=== PATIENT | male | born 1990 | race Caucasian/White ===

== ENCOUNTER 2019-07-31 16:25 | Emergency (ER) | payer SELFPAY ==
[2019-07-31 17:06] LABS: Bilirubin Negative (Negative); Blood, Urine Negative (Negative); Glucose, Urine (Dipstick) Negative (Negative); Leukocyte Negative (Negative); Nitrite Negative (Negative); Protein, Urine (Dipstick) Negative (Neg-Trace)
[2019-07-31 17:08] LABS: Clarity Clear (Clear)
[2019-07-31 17:19] LABS: Cocaine Metabolite Screen Not Detected (NotDetected); Medtox Reader # READER 4; Methamphetamine Detected (NotDetected); Phencyclidine (PCP) Not Detected (NotDetected); THC/Cannabinoid Screen Detected (NotDetected)
[2019-07-31 17:20] LABS: Amphetamine Detected (NotDetected); Barbiturates Screen Not Detected (NotDetected); Benzodiazepine Screen Not Detected (NotDetected); Medtox Control Line Valid? VALID (VALID); Methadone Not Detected (NotDetected); Opiate Screen Not Detected (NotDetected); Oxycodone Screen Not Detected (NotDetected); Tricyclic Screen Not Detected (NotDetected)
[2019-07-31 17:37] LABS: #Basophils 0.1 thou/uL (0.0-0.2); #Eosinphils 0.3 thou/uL (0.0-0.7); #Lymphocytes 1.9 thou/uL (1.20-3.40); #Monocytes 0.5 thou/uL (0.11-0.59); #Neutrophils 3.5 thou/uL (1.40-6.50); %Basophils 1.2 % (0.0-1.0); %Eosinophils 4.2 % (0.0-10.0); %Lymphocytes 30.3 % (21.0-51.0); %Monocytes 8.4 % (0.0-10.0); %Neutrophils 55.8 % (42.0-75.0); Hemoglobin 16.1 g/dL (14.0-18.0); Mean Corpuscular HGB CONC 33.3 g/dL (32.0-36.0); Mean Corpuscular Hemoglobin 30.7 pg (27.0-31.0); Mean Corpuscular Volume 92.3 fL (78.0-98.0); Mean Platelet Volume 6.8 fL (7.4-10.4); Platelet Count 253 thou/uL (130-400); RBC Distribution Width 12.4 % (11.5-14.5); Red Blood Cell (RBC) Count 5.25 mill/uL (4.70-6.10); White Blood Cell (WBC) Count 6.3 thou/uL (4.8-10.8)
[2019-07-31 17:57] LABS: Acetaminophen Less than 6.0 mcg/mL (10.0-30.0); Alcohol Less than 10 mg/dL (Less than 10); Salicylate Less than 8.0 mg/dL (15.0-30.0)
[2019-07-31 17:58] LABS: ALT (SGPT) 13 U/L (8-55); AST (SGOT) 17 U/L (5-34); Albumin 3.9 g/dL (3.5-5.0); Alkaline Phosphatase 81 U/L (40-110); Anion Gap 10 mmol/L (10-20); BUN (Urea Nitrogen) 11 mg/dL (8.9-20.6); Bilirubin, Total 0.6 mg/dL (0.2-1.2); CK (CPK) 84 U/L (30-200); Calc. Creatinine Clearance 0 mL/min (70-130); Calcium 9.1 mg/dL (7.8-10.44); Carbon Dioxide 31 mmol/L (22-29); Chloride 104 mmol/L (98-107); Estimated GFR-MDRD Greater than 90; Globulin 3.2 g/dL (2.4-3.5); Glucose 85 mg/dL (70-105); Potassium 4.3 mmol/L (3.5-5.1); Protein, Total 7.1 g/dL (6.0-8.3); Sodium 141 mmol/L (136-145)
[2019-07-31] MEDS ORDERED: Nicotine 21 MG PATCH TOP SCH (18:45)
== END 2019-08-01 09:41 ==
LOC: ERS 16:25
DX: R45.851 Suicidal ideations (principal); F41.9 Anxiety disorder, unspecified; F32.9 Major depressive disorder, single episode, unspecified; F20.9 Schizophrenia, unspecified; F17.210 Nicotine dependence, cigarettes, uncomplicated
CPT/HCPCS: 36415; 80053; 80306; 80307; 81003; 82550; 84443; 85025; 99285

== ENCOUNTER 2020-07-26 17:29 | Inpatient (IN) | payer OTHER, SELFPAY ==
[2020-07-26] MEDS ORDERED: Boostrix 0.5 ML VIAL ONE (17:45)
[2020-07-26 19:14] LABS: #Eosinphils 0.2 thou/uL (0.0-0.7); #Lymphocytes 1.5 thou/uL (1.20-3.40); #Monocytes 0.7 thou/uL (0.11-0.59); %Basophils 0.5 % (0.0-1.0); %Eosinophils 1.9 % (0.0-10.0); %Lymphocytes 16.1 % (21.0-51.0); %Monocytes 7.1 % (0.0-10.0); %Neutrophils 74.5 % (42.0-75.0); Hemoglobin 15.3 g/dL (14.0-18.0); Mean Corpuscular HGB CONC 32.9 g/dL (32.0-36.0); Mean Corpuscular Hemoglobin 30.8 pg (27.0-31.0); Mean Corpuscular Volume 93.8 fL (78.0-98.0); Mean Platelet Volume 7.2 fL (7.4-10.4); Platelet Count 234 thou/uL (130-400); Red Blood Cell (RBC) Count 4.94 mill/uL (4.70-6.10); White Blood Cell (WBC) Count 9.4 thou/uL (4.8-10.8)
[2020-07-26 19:35] LABS: ALT (SGPT) 20 U/L (8-55); AST (SGOT) 23 U/L (5-34); Albumin 4.1 g/dL (3.5-5.0); Alkaline Phosphatase 77 U/L (40-110); Anion Gap 12 mmol/L (10-20); BUN (Urea Nitrogen) 18 mg/dL (8.9-20.6); Bilirubin, Total 0.8 mg/dL (0.2-1.2); Calc. Creatinine Clearance 0 mL/min (70-130); Carbon Dioxide 27 mmol/L (22-29); Chloride 104 mmol/L (98-107); Estimated GFR-MDRD 88; Globulin 3.5 g/dL (2.4-3.5); Glucose 119 mg/dL (70-105); Potassium 4.2 mmol/L (3.5-5.1); Protein, Total 7.6 g/dL (6.0-8.3); Sodium 139 mmol/L (136-145)
[2020-07-26] MEDS ORDERED: Morphine 2 MG/ML VIAL SLOW IVP PRN (21:09)
[2020-07-26 21:19] VITALS: BMI 36.6
[2020-07-26] MEDS ORDERED: risperiDONE 1 MG TAB PO SCH (22:00)
[2020-07-26] MEDS: Lactated Ringer's 1,000 ML IV SCH (23:22)
[2020-07-26] MEDS: CEFAZOLIN 1 GM in Sodium Chloride 0.9% 100 ML IVPB SCH ×2 (23:22→23:24)
[2020-07-26] MEDS: Nicotine 7 MG PATCH TOP SCH (23:29)
[2020-07-27] MEDS: CEFAZOLIN 1 GM in Sodium Chloride 0.9% 100 ML IVPB SCH ×2 (07:30→08:00)
[2020-07-27] MEDS: Lactated Ringer's 1,000 ML IV SCH ×2 (07:30→08:05)
[2020-07-27] MEDS ORDERED: FLU VACC QS2020-21(6MOS UP)/PF 60 MCG/0.5 ML SYRINGE IM ONE (09:00)
[2020-07-27] MEDS ORDERED: risperiDONE 1 MG TAB PO SCH (09:00)
[2020-07-27] MEDS ORDERED: Ketorolac Tromethamine 30 MG/ML VIAL ONE ×2 (09:05→17:26)
[2020-07-27] MEDS ORDERED: Lidocaine 1% PF 5 ML VIAL ONE (09:05)
[2020-07-27] MEDS ORDERED: Dexamethasone 20 MG/5 ML VIAL ONE (09:05)
[2020-07-27] MEDS ORDERED: PROPOFOL 200 MG/20 ML VIAL ONE (09:05)
[2020-07-27] MEDS ORDERED: Ondansetron PF 4 MG/2 ML Vial ONE (09:05)
[2020-07-27 11:42] LABS: SARS-CoV-2 MS2 Positive; SARS-CoV-2 N Gene Negative; SARS-CoV-2 S Gene Negative; SARS-CoV-2 by NAA Not Detected (NotDetected); SARS-CoV-2 orf1ab Negative
[2020-07-27] MEDS ORDERED: Bupivacaine PF 0.5% 30 ML VIAL ONE (12:15)
[2020-07-27] MEDS ORDERED: Bacitracin Zinc Ointment 30 gm TUBE ONE (12:15)
[2020-07-27] MEDS ORDERED: Betamet Acet/Betamet Na Ph 30 MG/5 ML VIAL ONE (12:15)
[2020-07-27] MEDS ORDERED: Neomycin-Polymyxin 1 ML AMP ONE (12:17)
[2020-07-27] MEDS ORDERED: Fentanyl 100 MCG/2 ML VIAL ONE ×2 (12:22→14:58)
[2020-07-27] MEDS ORDERED: Midazolam HCl 2 mg/2 ml Vial ONE (12:25)
[2020-07-27] MEDS ORDERED: Gentamicin 80 MG/2 ML VIAL ONE (13:22)
[2020-07-27] MEDS ORDERED: Sodium Chloride 0.9% 10 ML ONE (13:23)
[2020-07-27] MEDS ORDERED: Promethazine HCl 25 MG/ML VIAL IM PRN ×3 (17:24→17:40)
[2020-07-27] MEDS ORDERED: Promethazine HCl 25 MG/ML VIAL SLOW IVP PRN ×2 (17:24→17:25)
[2020-07-27] MEDS ORDERED: Ondansetron HCl/PF 4 MG/2 ML Vial IVP PRN ×2 (17:24→17:25)
[2020-07-27] MEDS ORDERED: HYDROmorphone 2 MG/ML VIAL SLOW IVP PRN (17:24)
[2020-07-27] MEDS ORDERED: Ketorolac Tromethamine 30 MG/ML VIAL IVP PRN ×2 (17:25→17:46)
[2020-07-27] MEDS ORDERED: Ondansetron PF 4 MG/2 ML Vial SLOW IVP PRN (17:40)
[2020-07-27] MEDS ORDERED: Acetaminophen/Codeine 30-300mg Tablet PO PRN (17:40)
[2020-07-27] MEDS ORDERED: HYDROcodone/Acetaminophen 5/325 mg Tablet PO PRN (17:40)
[2020-07-27] MEDS ORDERED: Acetaminophen 325 MG TAB PO PRN (17:40)
[2020-07-27] MEDS ORDERED: traMADol HCl 50 MG TAB PO PRN (17:40)
[2020-07-27] MEDS ORDERED: Fentanyl 100 MCG/2 ML VIAL SLOW IVP PRN (17:40)
[2020-07-27] MEDS ORDERED: Morphine 4 MG/ML VIAL SLOW IVP PRN (17:40)
[2020-07-27] MEDS ORDERED: Communication Order-Pharmacy FS SCH (17:45)
[2020-07-27] MEDS ORDERED: Meperidine HCl/PF 25 MG/ML VIAL IM PRN (17:46)
[2020-07-27] MEDS ORDERED: TETANUS AND DIPHTHERIA TOX/PF 0.5 ML DISP.SYRIN IM SCH (18:00)
--- NOTE | 2020-07-27 20:19 | OP ---
DATE OF PROCEDURE: 07/27/2020 ANESTHESIA: General LMA technique augmented by 20 mL of 0.5% Marcaine given prior to surgery. PREOPERATIVE DIAGNOSES: 1. Radial digital nerve laceration, index finger. 2. Flexor digitorum profundus and flexor superficialis laceration, at the level of the A4 jacquelyn, making a zone two injury. 3. Palmar interossei laceration, index finger. 4. 2 cm wound, index finger. 5. At the thumb, one left thumb cutaneous nerve laceration central and radial to complete extensor pollicis longus laceration. 6. 1 cm laceration of skin. POSTOPERATIVE DIAGNOSES: 1. Radial digital nerve laceration, index finger. 2. Flexor digitorum profundus and flexor superficialis laceration, at the level of the A4 jacquelyn, making a zone two injury. 3. Palmar interossei laceration, index finger. 4. 2 cm wound, index finger. 5. At the thumb, one left thumb cutaneous nerve laceration central and radial to complete extensor pollicis longus laceration. 6. 1 cm laceration of skin. PROCEDURES PERFORMED: 1. At the left thumb. a. Debridement of wound. b. Closure of wound. c. Microscopic thumb radial sensory nerve branch repair. d. Extensor pollicis longus laceration repair. e. Microscopic digital nerve neuroplasty. 2. At the index finger. a. Debridement of wound. b. Closure of wound, 2 cm. c. Microscopic digital nerve neuroplasty. d. Digital nerve neuroplasty x2 microscopic. e. Radial digital nerve laceration repair, microscopic. 3. Flexor digitorum profundus repair in the zone two. 4. Flexor digitorum superficialis repair, zone two. 5. A1 jacquelyn release. DESCRIPTION OF PROCEDURE: After successful general LMA technique, the limb was prepped and draped. The patient then had a time-out accomplished and we identified the left thumb and index finger laceration. Left thumb laceration was dorsal radial and the index finger laceration was palmar radial. We exsanguinated the limb, inflated tourniquet to 250 mmHg pressure and extended each wound 3 cm distal and 2 cm proximal. There was a hematoma inside both the thumb and the index finger wound. Performed debridement 1st using tenotomy scissors, Yoakum blade, irrigation with 2 L of normal saline under bulb syringe pressure to evacuate all hematoma identified the damaged part. Under loupe magnification, we resected the skin edges. We using the same excisional technique down to and including the bone and found that the laceration of the index finger flexor toe profundus superficialis tendons were complete as was the thumb extensor pollicis longus and at the index finger laceration was through the proximal one third of the index finger A1 jacquelyn, making it a zone two injury in the level of the interosseous pulleys. We then received excellent hemostasis and began repair. We repaired the flexor digitorum profundus first with the finger flexed using a Surya needle to visualize 15 mm of tendon distal and at 2 cm proximal. We then used a classic a Bell-Mikaela technique with a 3-0 loop suture. Using two looped sutures for each of the two tendons, back wall repair first with a running 6-0 Prolene and then tied the knot for the limb size suture within the tendon structure and then over sewed with a running 6-0. We then released the A1 jacquelyn and this allowed excellent extension to 0 degrees at the PIP without any triggering or interruption of smooth excursion. We also repaired the 2nd palmar interossei using a #2 Ethibond one OS-4 needle. Multiple sutures gave a smooth surface and then palmar to this, we were able to identify the radial digital nerve complete lacerated. We did a microscopic digital neuroplasty of digital nerve and artery on the ulna side were intact. Likewise, the thumb, under microscope, we did a digital neuroplasty and saw that the digital nerve on the radial side of this lesion was intact and the neurovascular bundle was not even disturbed. I did lacerate two cutaneous superficial radial nerve terminal branches and we identified these for later closure. We now turned our attention to the thumb. We used a 4-0 Prolene [id number] suture x5 sutures to repair complete extensor pollicis longus and had excellent tension, and with 20 degrees of extension, there was no gap for flexion. There was no gap formation at the repair. Microscope was brought onto the field now, and we repaired the cutaneous digital nerve with 9-0 Nurolon x3 different cutaneous nerve branches. There was no gap formation here as well with 20 degrees of flexion of the IP joint. We turned our attention back to the large digital nerve branch, which was lacerated just prior to the sensory dorsal and palmar bifurcation. We resected, and used an epineural repair technique using a combination of 8-0 sutures on each end x1 and then 9-0 sutures in the middle x3, two palmar and one back wall. Then, we had released the tourniquet at 120 minutes and obtained hemostasis. We now obtained hemostasis in all the wounds, irrigated again with another 500 mL of normal saline and there was no excess bleeding. We obtained excellent hemostasis. Both incisions were closed with interrupted 4-0 nylon in a simple pattern, bulky dressing applied, bacitracin, Adaptic, 4x4, multiple 4x4's opened in the web spaces. Kerlix was applied and then the thumb was in abduction and 20 degrees of IP joint hyperextension and a 3-0 circumferential splint, well-padded Webril and a dorsal block splint was placed with the PIP at -20 degrees extension, with the index finger DIP pull forward approximately 6 to 7 mm compared to other digits based on the tension on the repair. All digits were pink with 1 second refill. The patient left the operating room without evidence of anesthetic or operative complication. Job ID: [id number]
[2020-07-27] MEDS ORDERED: risperiDONE 3 MG TAB PO SCH (21:00)
[2020-07-27] MEDS: Aspirin 81 mg Enteric Coated Tablet PO SCH (21:30)
[2020-07-27] MEDS: Nicotine 7 MG PATCH TOP SCH (21:33)
[2020-07-28 05:11] LABS: #Lymphocytes 0.8 thou/uL (1.20-3.40); #Monocytes 0.4 thou/uL (0.11-0.59); #Neutrophils 6.4 thou/uL (1.40-6.50); %Basophils 0.1 % (0.0-1.0); %Eosinophils 0.2 % (0.0-10.0); %Lymphocytes 9.9 % (21.0-51.0); %Monocytes 5.5 % (0.0-10.0); %Neutrophils 84.4 % (42.0-75.0); Mean Corpuscular Hemoglobin 31.5 pg (27.0-31.0); Mean Corpuscular Volume 95.3 fL (78.0-98.0); Platelet Count 220 thou/uL (130-400); RBC Distribution Width 12.6 % (11.5-14.5); Red Blood Cell (RBC) Count 4.45 mill/uL (4.70-6.10); White Blood Cell (WBC) Count 7.6 thou/uL (4.8-10.8)
[2020-07-28] MEDS: Aspirin 81 mg Enteric Coated Tablet PO SCH (08:17)
[2020-07-28] MEDS ORDERED: risperiDONE 1 MG TAB PO SCH (12:00)
--- NOTE | 2020-07-28 12:37 | PDOC.HHP ---
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 Patient underwent left hand laceration, nerve, and ligamentous repair by Dr. Ruiz on 07/27/2020. Hospitalist service consulted for medical management. Patient currently resting comfortably in bed. Denies chest pain, shortness of breath, abdominal pain. Patient denies numbness or tingling to extremities. Reports feeling in his left hand. Chart and medications reviewed. Hospitalist ROS - Review of Systems Constitutional: denies: fever, chills, sweats, weakness, malaise, other Eyes: denies: vision change ENT: denies: throat pain Respiratory: denies: cough, shortness of breath Cardiovascular: denies: chest pain, palpitations, orthopnea, light headedness Gastrointestinal: denies: nausea, vomiting, abdominal pain, diarrhea Genitourinary: denies: dysuria Musculoskeletal: reports: hand pain Skin: denies: rash Neurological: denies: weakness, numbness - Medication Medications: Active Medications Generic Name Dose Route Start Last Admin Trade Name Freq PRN Reason Stop Dose Admin Aspirin 81 mg 07/27/20 21:00 07/28/20 08:17 Aspirin 81 Mg Enteric Coated Tablet PO 81 mg BID ANTIONE Administration Nicotine 7 mg 07/26/20 22:00 07/27/20 21:33 Nicotine 7 Mg Patch TOP 7 mg 2200 ANTIONE Administration Quetiapine Fumarate 50 mg 07/27/20 21:00 07/28/20 00:48 Quetiapine Fumarate 25 Mg Tab PO Not Given HS [facility] Risperidone 3 mg 07/27/20 21:00 07/28/20 00:49 Risperidone 3 Mg Tab PO Not Given HS [facility] Hospitalist History - Past Medical History Other Medical History: Past medical history Schizophrenia Bipolar disorder Tobacco use Marijuana use - Past Surgical History Other Surgical History: Past surgical history includes Ankle surgery Left hand laceration, nerve, ligamentous repair - Family History Other Family History: Reports family history of father with heart disease, who is passed a patient unsure how old his father was. - Social History Smoking Status: Current every day smoker Tobacco Type: cigarettes Alcohol: reports: Occassional Drugs: reports: marijuana Living Situation: With Family Activity level: independent ambulation - Exam General Appearance: NAD, awake alert Eye: PERRL, anicteric sclera ENT: normocephalic atraumatic, no oropharyngeal lesions, moist mucosa Neck: supple, symmetric, no JVD, no thyromegaly, no lymphadenopathy, no carotid bruit Heart: RRR, no murmur, no gallops, no rubs, normal peripheral pulses Respiratory: CTAB, no wheezes, no rales, no ronchi, normal chest expansion, no tachypnea, normal percussion Gastrointestinal: soft, non-tender, non-distended, normal bowel sounds, no palpable masses, no hepatomegaly, no splenomegaly, no bruit Extremities: no cyanosis, no clubbing, no edema Extremities - other findings: Good capillary refill to left hand, dressing in place. Skin: normal turgor, no lesions, no rashes Neurological: cranial nerve grossly intact, normal sensation to touch, no weakness, no focal deficits, no new deficit Musculoskeletal: normal tone, normal strength, no muscle wasting Psychiatric: normal affect, normal behavior, A&O x 3 Hospitalist Results - Labs Result Diagrams: 07/28/20 04:48 07/26/20 19:07 Lab results: WBC 7.6 thou/uL (4.8-10.8) 07/28/20 04:48 Hgb 14.0 g/dL (14.0-18.0) 07/28/20 04:48 Hct 42.4 % (42.0-52.0) 07/28/20 04:48 MCV 95.3 fL (78.0-98.0) 07/28/20 04:48 Plt Count 220 thou/uL (130-400) 07/28/20 04:48 Neutrophils % 84.4 % (42.0-75.0) H 07/28/20 04:48 Sodium 139 mmol/L (136-145) 07/26/20 19:07 Potassium 4.2 mmol/L (3.5-5.1) 07/26/20 19:07 Chloride 104 mmol/L (98-107) 07/26/20 19:07 Carbon Dioxide 27 mmol/L (22-29) 07/26/20 19:07 BUN 18 mg/dL (8.9-20.6) 07/26/20 19:07 Creatinine 1.01 mg/dL (0.7-1.3) 07/26/20 19:07 Glucose 119 mg/dL (70-105) H 07/26/20 19:07 Calcium 9.0 mg/dL (7.8-10.44) 07/26/20 19:07 Total Bilirubin 0.8 mg/dL (0.2-1.2) 07/26/20 19:07 AST 23 U/L (5-34) 07/26/20 19:07 ALT 20 U/L (8-55) 07/26/20 19:07 Alkaline Phosphatase 77 U/L (40-110) 07/26/20 19:07 Serum Total Protein 7.6 g/dL (6.0-8.3) 07/26/20 19:07 Albumin 4.1 g/dL (3.5-5.0) 07/26/20 19:07 Hospitalist H&P A/P - Plan Plan: Status post left hand laceration, nerve, tendon repair Patient is postop day 1 after surgical repair from a jukebox checker injury at work that was done by Dr. Ruiz on 07/27/2020. Patient currently denies any chest pain, shortness of breath, abdominal pain. No BM yet, but passing flatus. Reports intact sensation to left upper extremity. ENcouraged use of IS. Plan -Surgical team primary -Encourage IS -Bowel regimen -Neurovascular checks q4 Bipolar Disorder/Schizophrenia Pt with hx of bipolar disorder and schizophrenia. On home seroquel 25 mg nightly and risperdal 4 mg BID. Patient currently reports that his mood is stable. Denies SI/HI. Plan -Continue seroquel 25 mg nightly -Continue risperdal 4 mg BID DVT prophylaxis: per surgical team FULL CODE Case discussed with attending physician, Dr. Claros.
[2020-07-28 15:48] VITALS: BP 133/83; TEMP 98.2
--- NOTE | 2020-07-29 15:01 | DIS ---
DATE OF ADMISSION: 07/27/2020 DATE OF DISCHARGE: 07/28/2020 ADMISSION DIAGNOSES: 1. Schizophrenia, chronic, relapsing, presently untreated. 2. Zone 2, proximal aspect of zone 2 flexor digitorum profundus and superficialis laceration, index finger, left. 3. Digital nerve laceration, radial digital nerve index finger, left. 4. Cutaneous nerve laceration, dorsal aspect of the thumb, zone 2, left. 5. Left thumb extensor pollicis longus laceration complete zone 1 to 2 as well, also of the left thumb. HOSPITAL COURSE: The patient was admitted to the hospital after having admitted that although he is holding a job, he has had schizophrenia for most of his life. He reports beginning to hear voices and have thoughts that he could not control, began at age 11, but he felt that this might be his "normal state." Between age 14 and 15, he reports began to try to control these voices and deal with them using marijuana abuse. It was not until he was almost 21 years old that he began having treatment appropriately. He reports that he is under the treatment of the local [facility] but has not had an appointment for approximately six months or since the [place] uncontrolled COVID-19 outbreak and the Tuesday, the 13 of December emergency declaration. He has been thus without his previous medicine which he said was risperidone. 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 This left him with the laceration as described as the admit and discharge diagnosis. Because of this, he was admitted, underwent what we were told would be a rapid COVID test, but because of the emergency declarations the rapid test at this facility really mean 24 hours, we had to wait almost the whole day until the test was confirmed and he was COVID negative, so we proceeded with the surgery. Thus, the day after admission, went to the operating room, underwent repair microscopically of the radial digital nerve, debridement of wound of the index finger, and repair of the flexor digitorum profundus and flexor digitorum superficialis through the A4 jacquelyn and then he underwent open release of the jacquelyn, repair the wound, repair of the first palmar interossei, and microscopic digital nerve repair. At the thumb, he underwent debridement of wound, repair of extensor pollicis longus tendon, and the repair of the digital nerve, repair of the dorsal cutaneous superficial radial nerve terminal branches. Digital nerve neuroplasty of the index finger under microscope ulnar digital nerve and of the radial digital nerve to the thumb revealed no digital nerve laceration through these regions. He tolerated the procedure well. He had stable neurologic exam and could flex. He has already flexed distal phalangeal and index finger in the dorsal block splint without problems and could extend the PIP to -20. This is on the day of discharge. He underwent treatment beginning with risperidone 3 mg the night before surgery, 2 mg on the day of surgery and then was treated risperidone the day after surgery until we were able to have him evaluated by [facility] approximately 1600 on the day of discharge. They arranged for him to have a zoom meeting in one week as an appointment for followup and then instructed me to place him on Zyprexa, 5 mg tablets, two tablets in the morning and one tablet at night. He will be given 90. His other discharge medications will be clindamycin 300 mg one p.o. q.8 hours for a total of 15 days as prophylactic antibiotic and tramadol 50 mg one q.8 hours p.r.n., total of 21 for pain as needed. He was very comfortable at the time of discharge. PAST MEDICAL HISTORY: Tobacco abuse. PAST SURGICAL HISTORY: Not applicable. REVIEW OF SYSTEMS: Please see detailed psychiatric history listed in history of present illness above. PLAN: Follow up with MR in seven days, follow up in our office in approximately 10 days, and continue to keep his splint clean and dry. I have touched base at the time of discharge with his grandmother, Ms. Kirkland, whom he lives with, has explicit instructions for both the MR followup and for how to keep the dressing clean and dry. We wished this gentleman luck in his fight to seek a cure under such trying health times such as post-COVID and scarcity of mental health availability. Job ID: [id number]
== END 2020-07-28 18:10 | disposition home or self-care (01) | DRG 42 ==
LOC: ERS 17:29 → SJJU 19:22 → OBSVTOIN 07-27 17:40
PROVIDERS: ADMIT Orthopaedic Surgery Hand Surgery; ATTEND Orthopaedic Surgery Hand Surgery
PROC: 01Q60ZZ Repair Radial Nerve, Open Approach (ICD-10-PCS; principal; 2020-07-27)
PROC: 0PBV0ZZ Excision of Left Finger Phalanx, Open Approach (ICD-10-PCS; 2020-07-27)
PROC: 0PBS0ZZ Excision of Left Thumb Phalanx, Open Approach (ICD-10-PCS; 2020-07-27)
PROC: 3E0234Z Introduction of Serum, Toxoid and Vaccine into Muscle, Percutaneous Approach (ICD-10-PCS; 2020-07-27)
DX: S64.491A Injury of digital nerve of left index finger, initial encounter (principal); S64.32XA Injury of digital nerve of left thumb, initial encounter; Z20.828 Contact with and (suspected) exposure to other viral communicable diseases; F20.9 Schizophrenia, unspecified; F31.9 Bipolar disorder, unspecified; F17.210 Nicotine dependence, cigarettes, uncomplicated; F12.10 Cannabis abuse, uncomplicated; Z23 Encounter for immunization; W26.8XXA Contact with other sharp object(s), not elsewhere classified, initial encounter; Y92.69 Other specified industrial and construction area as the place of occurrence of the external cause; Z79.899 Other long term (current) drug therapy
CPT/HCPCS: 12002; 36415; 80053; 85025; 87635; 90471; 90715; 93005; 96365; 96375; G0378; J0690; J0702; J1100; J1580; J1885; J2250; J2270; J2405; J2704; J3010; J3370; J3490; J7030; S0020; U0003

== ENCOUNTER 2021-03-08 17:46 | Emergency (ER) | payer SELFPAY ==
[2021-03-08 20:51] LABS: #Eosinphils 0.2 thou/uL (0.0-0.7); #Lymphocytes 1.7 thou/uL (1.20-3.40); #Monocytes 0.7 thou/uL (0.11-0.59); #Neutrophils 6.1 thou/uL (1.40-6.50); %Basophils 0.2 % (0.0-1.0); %Eosinophils 2.8 % (0.0-10.0); %Lymphocytes 19.1 % (21.0-51.0); %Monocytes 7.8 % (0.0-10.0); %Neutrophils 70.2 % (42.0-75.0); Hemoglobin 13.6 g/dL (14.0-18.0); Mean Corpuscular HGB CONC 33.5 g/dL (32.0-36.0); Mean Corpuscular Hemoglobin 30.8 pg (27.0-31.0); Mean Corpuscular Volume 91.9 fL (78.0-98.0); Mean Platelet Volume 7.1 fL (7.4-10.4); Platelet Count 239 thou/uL (130-400); Red Blood Cell (RBC) Count 4.42 mill/uL (4.70-6.10); White Blood Cell (WBC) Count 8.7 thou/uL (4.8-10.8)
[2021-03-08 21:04] LABS: ALT (SGPT) 21 U/L (8-55); AST (SGOT) 18 U/L (5-34); Albumin 3.7 g/dL (3.5-5.0); Alkaline Phosphatase 74 U/L (40-110); Anion Gap 14 mmol/L (10-20); BUN (Urea Nitrogen) 12 mg/dL (8.9-20.6); Bilirubin, Total 0.7 mg/dL (0.2-1.2); Calc. Creatinine Clearance 0 mL/min (70-130); Calcium 8.7 mg/dL (7.8-10.44); Carbon Dioxide 25 mmol/L (22-29); Chloride 106 mmol/L (98-107); Glucose 98 mg/dL (70-105); Potassium 3.8 mmol/L (3.5-5.1); Protein, Total 6.7 g/dL (6.0-8.3); Sodium 141 mmol/L (136-145)
[2021-03-08 22:01] LABS: Bilirubin Negative (Negative); Blood, Urine Negative (Negative); Glucose, Urine (Dipstick) Negative (Negative); Ketone, Urine Negative (Negative); Leukocyte Negative (Negative); Nitrite Negative (Negative); Protein, Urine (Dipstick) Negative (Neg-Trace)
[2021-03-08 22:02] LABS: Clarity Clear (Clear); Specific Gravity, Urine 1.029 (1.002-1.036)
== END 2021-03-08 23:05 | disposition home or self-care (01) ==
LOC: ERS 17:46
DX: M79.89 Other specified soft tissue disorders (principal); F17.210 Nicotine dependence, cigarettes, uncomplicated
CPT/HCPCS: 36415; 71045; 80053; 81003; 83880; 85025; 93005

== ENCOUNTER 2022-07-18 16:02 | Emergency (ER) | payer SELFPAY ==
[2022-07-18] MEDS ORDERED: Lidocaine 1% PF 5 ML VIAL ONE (16:22)
[2022-07-18] MEDS ORDERED: Bacitracin 1 PK ONE (17:21)
== END 2022-07-18 17:38 | disposition home or self-care (01) ==
LOC: ERS 16:02
DX: S51.812A Laceration without foreign body of left forearm, initial encounter (principal); F17.210 Nicotine dependence, cigarettes, uncomplicated; W25.XXXA Contact with sharp glass, initial encounter
CPT/HCPCS: 12032

== ENCOUNTER 2024-06-26 09:53 | Inpatient (IN) | payer OTHER ==
[2024-06-26 10:36] LABS: #Basophils 0.06 10x3/uL (0.0-0.2); %Basophils 0.5 % (0.0-1.0); %Eosinophils 2.8 % (0.0-10.0); %Lymphocytes 17.5 % (21.0-51.0); %Monocytes 6.3 % (0.0-10.0); %Neutrophils 72.5 % (42.0-75.0); Hematocrit 49.8 % (42.0-52.0); Hemoglobin 15.4 g/dL (14.0-18.0); Mean Corpuscular HGB CONC 30.9 g/dL (32.0-36.0); Mean Corpuscular Hemoglobin 28.3 pg (27.0-31.0); Mean Corpuscular Volume 91.5 fL (78.0-98.0); Mean Platelet Volume 10.1 fL (7.4-10.4); Platelet Count 234 10x3/uL (130-400); RBC Distribution Width 14.6 % (11.5-14.5); Red Blood Cell (RBC) Count 5.44 mill/uL (4.70-6.10)
[2024-06-26] MEDS ORDERED: Iopamidol-370 76% 500 ML MDV (1 ML CHARGE) ONE (10:43)
[2024-06-26 10:52] LABS: ALT (SGPT) 51 U/L (8-55); AST (SGOT) 28 U/L (5-34); Albumin 3.4 g/dL (3.5-5.0); Alkaline Phosphatase 100 U/L (40-110); Anion Gap 14 mmol/L (10-20); BUN (Urea Nitrogen) 15 mg/dL (8.9-20.6); Bilirubin, Total 1.4 mg/dL (0.2-1.2); Calc. Creatinine Clearance 0 mL/min (70-130); Calcium 9.2 mg/dL (7.8-10.44); Carbon Dioxide 25 mmol/L (22-29); Chloride 103 mmol/L (98-107); Estimated GFR 78; Globulin 4.6 g/dL (2.4-3.5); Glucose 162 mg/dL (70-105); Potassium 3.9 mmol/L (3.5-5.1); Sodium 138 mmol/L (136-145)
[2024-06-26 11:27] LABS: Troponin I 0.519 ng/mL (< 0.028)
[2024-06-26 12:03] LABS: INR-International Normal Ratio 1.1; Lipase 13 U/L (8-78); Prothrombin Time 14.4 sec (12.0-14.7)
[2024-06-26 12:04] LABS: PTT 32.4 sec (22.9-36.1)
[2024-06-26 12:06] LABS: Acetaminophen Less than 10 mcg/mL (Less than 10); Alcohol Less than 10.0 mg/dL (Less than 10); Salicylate Less than 8.0 mg/dL (Less than 8.0)
[2024-06-26] MEDS ORDERED: Enoxaparin 100 MG (1 mL) SYRINGE ONE (12:36)
[2024-06-26] MEDS ORDERED: Enoxaparin 40 MG (0.4 mL) SYRINGE ONE (12:36)
[2024-06-26] MEDS ORDERED: Enoxaparin 30 MG (0.3 mL) SYRINGE ONE ×2 (12:36→15:46)
[2024-06-26] MEDS ORDERED: Acetaminophen 325 MG TAB PO PRN (14:32)
[2024-06-26] MEDS: Enoxaparin 30 MG (0.3 mL) SYRINGE IVP SCH (15:51)
[2024-06-26 16:13] LABS: Troponin I 0.427 ng/mL (< 0.028)
[2024-06-26 17:01] LABS: Amphetamine Detected (NotDetected); Barbiturates Screen Not Detected (NotDetected); Benzodiazepine Screen Not Detected (NotDetected); Cocaine Metabolite Screen Not Detected (NotDetected); Methadone Not Detected (NotDetected); Methamphetamine Detected (NotDetected); Opiate Screen Not Detected (NotDetected); Oxycodone Screen Not Detected (NotDetected); Phencyclidine (PCP) Not Detected (NotDetected); THC/Cannabinoid Screen Detected (NotDetected); Tricyclic Screen Not Detected (NotDetected)
[2024-06-26 18:53] LABS: Lactic Acid 2.23 mmol/L (0.5-2.2)
[2024-06-26] MEDS: Enoxaparin 60 MG (0.6 mL) SYRINGE SC SCH (22:06)
[2024-06-26] MEDS: Enoxaparin 120 MG/0.8 ML SYRINGE SC SCH (22:06)
[2024-06-27 05:46] LABS: #Basophils 0.07 10x3/uL (0.0-0.2); %Basophils 0.7 % (0.0-1.0); %Lymphocytes 22.1 % (21.0-51.0); %Monocytes 9.2 % (0.0-10.0); %Neutrophils 63.6 % (42.0-75.0); Hematocrit 43.2 % (42.0-52.0); Hemoglobin 13.7 g/dL (14.0-18.0); Mean Corpuscular HGB CONC 31.7 g/dL (32.0-36.0); Mean Corpuscular Hemoglobin 28.7 pg (27.0-31.0); Mean Corpuscular Volume 90.4 fL (78.0-98.0); Mean Platelet Volume 10.3 fL (7.4-10.4); Platelet Count 227 10x3/uL (130-400); RBC Distribution Width 14.6 % (11.5-14.5); Red Blood Cell (RBC) Count 4.78 mill/uL (4.70-6.10)
[2024-06-27 05:59] LABS: INR-International Normal Ratio 1.2; Prothrombin Time 15.1 sec (12.0-14.7)
[2024-06-27 06:00] LABS: PTT 45.8 sec (22.9-36.1)
[2024-06-27 06:09] LABS: D-Dimer Test 9.92 mcg/mL (0.27-0.43)
[2024-06-27 06:35] LABS: ALT (SGPT) 36 U/L (8-55); AST (SGOT) 22 U/L (5-34); Albumin 2.8 g/dL (3.5-5.0); Alkaline Phosphatase 81 U/L (40-110); Anion Gap 12 mmol/L (10-20); BUN (Urea Nitrogen) 13 mg/dL (8.9-20.6); Bilirubin, Total 1.2 mg/dL (0.2-1.2); Calc. Creatinine Clearance 260 mL/min (70-130); Calcium 8.7 mg/dL (7.8-10.44); Carbon Dioxide 24 mmol/L (22-29); Chloride 105 mmol/L (98-107); Estimated GFR 108; Globulin 3.8 g/dL (2.4-3.5); Glucose 113 mg/dL (70-105); Potassium 4.4 mmol/L (3.5-5.1); Protein, Total 6.6 g/dL (6.0-8.3); Sodium 137 mmol/L (136-145)
[2024-06-27] MEDS: Enoxaparin 120 MG/0.8 ML SYRINGE SC SCH (08:43)
[2024-06-27] MEDS: Enoxaparin 60 MG (0.6 mL) SYRINGE SC SCH (08:43)
[2024-06-27] MEDS ORDERED: Bupropion 150 MG SR.TAB PO SCH (09:00)
[2024-06-27 09:31] LABS: Critical Call Chem Troponin I RESULT DECREASING; Troponin I 0.323 ng/mL (< 0.028)
[2024-06-27] MEDS: Lorazepam 0.5 MG TAB PO PRN (12:30)
[2024-06-27] MEDS: Lorazepam 2 MG/ML VIAL SLOW IVP SCH (14:18)
[2024-06-27] MEDS: Nicotine 14 MG PATCH TD SCH (18:36)
[2024-06-28 05:57] LABS: #Basophils 0.07 10x3/uL (0.0-0.2); %Basophils 0.6 % (0.0-1.0); %Eosinophils 3.7 % (0.0-10.0); %Lymphocytes 18.6 % (21.0-51.0); %Monocytes 7.2 % (0.0-10.0); %Neutrophils 69.3 % (42.0-75.0); Hematocrit 44.8 % (42.0-52.0); Hemoglobin 14.3 g/dL (14.0-18.0); Mean Corpuscular HGB CONC 31.9 g/dL (32.0-36.0); Mean Corpuscular Hemoglobin 28.3 pg (27.0-31.0); Mean Corpuscular Volume 88.7 fL (78.0-98.0); Mean Platelet Volume 10.5 fL (7.4-10.4); Platelet Count 277 10x3/uL (130-400); RBC Distribution Width 14.6 % (11.5-14.5); Red Blood Cell (RBC) Count 5.05 mill/uL (4.70-6.10)
[2024-06-28 06:18] LABS: ALT (SGPT) 30 U/L (8-55); AST (SGOT) 17 U/L (5-34); Albumin 2.7 g/dL (3.5-5.0); Alkaline Phosphatase 83 U/L (40-110); Anion Gap 11 mmol/L (10-20); BUN (Urea Nitrogen) 17 mg/dL (8.9-20.6); Bilirubin, Total 0.8 mg/dL (0.2-1.2); Calc. Creatinine Clearance 290 mL/min (70-130); Calcium 8.7 mg/dL (7.8-10.44); Carbon Dioxide 25 mmol/L (22-29); Chloride 105 mmol/L (98-107); Estimated GFR 118; Globulin 3.8 g/dL (2.4-3.5); Glucose 137 mg/dL (70-105); Potassium 3.8 mmol/L (3.5-5.1); Protein, Total 6.5 g/dL (6.0-8.3); Sodium 137 mmol/L (136-145)
[2024-06-28] MEDS: Pantoprazole DR 40 MG TAB PO SCH (08:39)
[2024-06-28] MEDS: Nicotine 14 MG PATCH TD SCH (17:26)
[2024-06-28] MEDS: Apixaban 5 MG TAB PO SCH (21:18)
[2024-06-29 05:02] LABS: #Basophils 0.07 10x3/uL (0.0-0.2); %Basophils 0.6 % (0.0-1.0); %Eosinophils 3.6 % (0.0-10.0); %Lymphocytes 20.9 % (21.0-51.0); %Monocytes 8.4 % (0.0-10.0); %Neutrophils 65.9 % (42.0-75.0); Hematocrit 42.7 % (42.0-52.0); Hemoglobin 13.7 g/dL (14.0-18.0); Mean Corpuscular HGB CONC 32.1 g/dL (32.0-36.0); Mean Corpuscular Hemoglobin 28.4 pg (27.0-31.0); Mean Corpuscular Volume 88.4 fL (78.0-98.0); Mean Platelet Volume 10.3 fL (7.4-10.4); Platelet Count 278 10x3/uL (130-400); RBC Distribution Width 14.6 % (11.5-14.5); Red Blood Cell (RBC) Count 4.83 mill/uL (4.70-6.10)
[2024-06-29 05:23] LABS: ALT (SGPT) 27 U/L (8-55); AST (SGOT) 18 U/L (5-34); Albumin 2.6 g/dL (3.5-5.0); Alkaline Phosphatase 71 U/L (40-110); Anion Gap 13 mmol/L (10-20); BUN (Urea Nitrogen) 14 mg/dL (8.9-20.6); Calc. Creatinine Clearance 262 mL/min (70-130); Calcium 8.5 mg/dL (7.8-10.44); Carbon Dioxide 26 mmol/L (22-29); Chloride 103 mmol/L (98-107); Estimated GFR 109; Globulin 3.6 g/dL (2.4-3.5); Glucose 101 mg/dL (70-105); Potassium 4.5 mmol/L (3.5-5.1); Protein, Total 6.2 g/dL (6.0-8.3); Sodium 137 mmol/L (136-145)
[2024-06-29 12:32] LABS: Cardiolipin IgA Ab 6.8 APL-U/mL (<14 Negative); Cardiolipin IgM Ab 4.3 MPL-U/mL (<10 Negative); EliA APS New Method **** NEW METHOD ****
[2024-06-29] MEDS: Sacubitril 24MG/Valsartan 26 MG TAB PO SCH (20:26)
[2024-06-30 03:54] LABS: #Basophils 0.07 10x3/uL (0.0-0.2); %Basophils 0.6 % (0.0-1.0); %Lymphocytes 18.8 % (21.0-51.0); %Monocytes 6.9 % (0.0-10.0); %Neutrophils 69.2 % (42.0-75.0); Hematocrit 44.4 % (42.0-52.0); Mean Corpuscular HGB CONC 31.5 g/dL (32.0-36.0); Mean Corpuscular Hemoglobin 28.3 pg (27.0-31.0); Mean Corpuscular Volume 89.9 fL (78.0-98.0); Mean Platelet Volume 9.7 fL (7.4-10.4); Platelet Count 312 10x3/uL (130-400); RBC Distribution Width 14.7 % (11.5-14.5); Red Blood Cell (RBC) Count 4.94 mill/uL (4.70-6.10)
[2024-06-30 04:27] LABS: ALT (SGPT) 35 U/L (8-55); AST (SGOT) 32 U/L (5-34); Albumin 2.7 g/dL (3.5-5.0); Alkaline Phosphatase 76 U/L (40-110); Anion Gap 13 mmol/L (10-20); BUN (Urea Nitrogen) 12 mg/dL (8.9-20.6); Bilirubin, Total 0.8 mg/dL (0.2-1.2); Calc. Creatinine Clearance 271 mL/min (70-130); Calcium 8.9 mg/dL (7.8-10.44); Carbon Dioxide 24 mmol/L (22-29); Chloride 106 mmol/L (98-107); Estimated GFR 113; Globulin 3.8 g/dL (2.4-3.5); Glucose 123 mg/dL (70-105); Potassium 4.2 mmol/L (3.5-5.1); Protein, Total 6.5 g/dL (6.0-8.3); Sodium 139 mmol/L (136-145)
[2024-06-30 05:30] VITALS: BMI 39.2
[2024-06-30] MEDS: Dapagliflozin Propanediol 10 MG TAB PO SCH (08:30)
[2024-06-30] MEDS: Nicotine 21 MG PATCH TD SCH (11:00)
[2024-06-30] MEDS: Diazepam 2 MG TAB PO PRN (16:56)
[2024-07-01 04:22] LABS: #Basophils 0.08 10x3/uL (0.0-0.2); %Basophils 0.7 % (0.0-1.0); %Eosinophils 5.7 % (0.0-10.0); %Lymphocytes 20.2 % (21.0-51.0); %Monocytes 7.1 % (0.0-10.0); %Neutrophils 65.6 % (42.0-75.0); Hematocrit 47.8 % (42.0-52.0); Hemoglobin 14.9 g/dL (14.0-18.0); Mean Corpuscular HGB CONC 31.2 g/dL (32.0-36.0); Mean Corpuscular Hemoglobin 28.3 pg (27.0-31.0); Mean Corpuscular Volume 90.9 fL (78.0-98.0); Mean Platelet Volume 9.6 fL (7.4-10.4); Platelet Count 363 10x3/uL (130-400); RBC Distribution Width 14.8 % (11.5-14.5); Red Blood Cell (RBC) Count 5.26 mill/uL (4.70-6.10)
[2024-07-01 04:42] LABS: ALT (SGPT) 48 U/L (8-55); AST (SGOT) 42 U/L (5-34); Albumin 2.8 g/dL (3.5-5.0); Alkaline Phosphatase 78 U/L (40-110); Anion Gap 11 mmol/L (10-20); BUN (Urea Nitrogen) 18 mg/dL (8.9-20.6); Bilirubin, Total 0.7 mg/dL (0.2-1.2); Calc. Creatinine Clearance 265 mL/min (70-130); Carbon Dioxide 25 mmol/L (22-29); Chloride 106 mmol/L (98-107); Estimated GFR 110; Globulin 3.9 g/dL (2.4-3.5); Glucose 107 mg/dL (70-105); Potassium 4.5 mmol/L (3.5-5.1); Protein, Total 6.7 g/dL (6.0-8.3); Sodium 137 mmol/L (136-145)
[2024-07-01] MEDS: Nicotine 21 MG PATCH TD SCH (11:42)
[2024-07-01] MEDS: hydrOXYzine 25 MG TAB PO PRN (22:56)
[2024-07-02 20:32] VITALS: BP 121/90; TEMP 97.7
[2024-07-03 19:37] LABS: Activated Protein C Resistance 2.8 ratio (.)
[2024-07-05] MEDS ORDERED: Apixaban 5 MG TAB PO SCH (21:00)
== END 2024-07-02 22:13 | disposition home or self-care (01) | DRG 175 ==
LOC: ERS 09:53 → ERHOLD 14:57 → CCU 17:01 → 2SW 06-28 19:12
PROVIDERS: ADMIT Family Medicine; ATTEND Family Medicine
DX: I26.02 Saddle embolus of pulmonary artery with acute cor pulmonale (principal); I21.A1 Myocardial infarction type 2; J96.01 Acute respiratory failure with hypoxia; I50.22 Chronic systolic (congestive) heart failure; E66.9 Obesity, unspecified; I25.5 Ischemic cardiomyopathy; F15.10 Other stimulant abuse, uncomplicated; F41.9 Anxiety disorder, unspecified; F17.210 Nicotine dependence, cigarettes, uncomplicated; F20.9 Schizophrenia, unspecified; G47.33 Obstructive sleep apnea (adult) (pediatric); K21.9 Gastro-esophageal reflux disease without esophagitis; F32.A Depression, unspecified; Z91.030 Bee allergy status; Z79.899 Other long term (current) drug therapy; Z68.39 Body mass index [BMI] 39.0-39.9, adult
CPT/HCPCS: 36415; 71045; 71275; 80053; 80306; 80307; 83090; 83605; 83690; 83880; 84484; 85025; 85300; 85303; 85306; 85307; 85598; 85610; 85730; 86147; 93005; 93306; 93970; 97139; J1650; J2060; Q9967